=== PATIENT | female | born 1990 | race Caucasian/White ===

== ENCOUNTER → 2020-09-04 | Outpatient (CLI) | payer OTHER ==
[~2020-09-04] MED LIST: COLACE 100MG C100 MG PO; DOCUSATE SODIU100 MG PO; HYDROCODON-ACE1 EAC4 PO; IBUPROFEN600 MG PO; IRON325 M1 PO; LORTAB 5-325 M1 EACH PO; MINI PRENATAL1 EACH PO; PRENATAL VITAM1 EAC8 PO
== END ==
LOC: GENOP 23:28
DX: R42 Dizziness and giddiness (principal); O75.4 Other complications of obstetric surgery and procedures; Z3A.34 34 weeks gestation of pregnancy; Z37.9 Outcome of delivery, unspecified
CPT/HCPCS: G0463

== ENCOUNTER 2020-10-06 12:14 | Outpatient (CLI) | payer OTHER ==
[~2020-10-06 12:14] MED LIST changes: -DOCUSATE SODIU100 MG PO; -HYDROCODON-ACE1 EAC4 PO; -MINI PRENATAL1 EACH PO
[2020-10-06 13:24] LABS: HEMOGLOBIN 9.3 gm/dl (12.3-15.3); RED BLOOD COUNT 4.26 M/UL (4.00-5.10); WHITE BLOOD COUNT 12.4 K/UL (4.5-11.0)
== END 2020-10-06 13:14 | disposition home or self-care (01) ==
LOC: GENOP 12:14
PROVIDERS: Obstetrics & Gynecology
DX: Z01.818 Encounter for other preprocedural examination (principal)
CPT/HCPCS: 36415; 81001; 85025

== ENCOUNTER 2020-10-08 05:34 | Inpatient (IN) | payer OTHER ==
[~2020-10-08] VITALS: Ht 162.6 cm; Wt 113.4 kg
[2020-10-08] MEDS ORDERED: MINI PRENATAL1 EACH PO (06:25)
[2020-10-08] MEDS ORDERED: HYDROCODON-ACE1 EAC4 PO (08:00)
[2020-10-08] MEDS ORDERED: IBUPROFEN600 MG PO (08:00)
[2020-10-08] MEDS ORDERED: DOCUSATE SODIU100 MG PO (08:00)
[2020-10-09 02:39] LABS: HEMOGLOBIN 7.4 gm/dl (12.3-15.3)
== END 2020-10-09 17:24 | disposition home or self-care (01) | DRG 788 ==
LOC: OB 05:34
PROVIDERS: ADMIT Obstetrics & Gynecology
PROC: 3E0234Z Introduction of Serum, Toxoid and Vaccine into Muscle, Percutaneous Approach (ICD-10-PCS; 2020-10-08)
PROC: 10D00Z1 Extraction of Products of Conception, Low, Open Approach (ICD-10-PCS; principal; 2020-10-08 07:56)
DX: O34.211 Maternal care for low transverse scar from previous cesarean delivery (principal); N85.8 Other specified noninflammatory disorders of uterus; Z3A.39 39 weeks gestation of pregnancy; Z37.0 Single live birth; Z90.49 Acquired absence of other specified parts of digestive tract; O99.844 Bariatric surgery status complicating childbirth; O99.214 Obesity complicating childbirth; E66.01 Morbid (severe) obesity due to excess calories; O69.81X0 Labor and delivery complicated by cord around neck, without compression, not applicable or unspecified; Z23 Encounter for immunization
CPT/HCPCS: 36415; 81001; 82800; 85014; 85018; 85025; 86900; 86901; 90715; C9113; J0690; J2274; J2405; J2590; J3010; J7120